=== PATIENT | female | born 1945 | race Caucasian/White ===

== ENCOUNTER 2018-04-21 10:44 | Day surgery (SDC) | payer MEDICARE ==
--- NOTE | 2018-04-21 10:32 | P.GSHP ---
History of Present Illness H&P Date: 04/21/18 CHIEF COMPLAINT: GERD HISTORY OF PRESENT ILLNESS: The patient is a 73-year-old female who presents reports gastroesophageal reflux disease. Upper endoscopy was offered for further evaluation and management. PAST MEDICAL HISTORY: Please see list. PAST SURGICAL HISTORY: Please see list. MEDICATIONS: Please see list. ALLERGIES: Please see list. SOCIAL HISTORY: No illicit drug use FAMILY HISTORY: No reports of Crohn disease or ulcerative colitis. REVIEW OF ORGAN SYSTEMS: CONSTITUTIONAL: No reports of fevers or chills. GI: Denies any blood in stools or constipation. PHYSICAL EXAM: VITAL SIGNS: Stable GENERAL: Well-developed and pleasant in no acute distress. HEENT: No scleral icterus. Extraocular movements grossly intact. Moist buccal mucosa. NECK: Supple without lymphadenopathy. CHEST: Unlabored respirations. Equal bilateral excursions. CARDIOVASCULAR: Regular rate and rhythm. Distal 2+ pulses. ABDOMEN: Soft, nondistended. MUSCULOSKELETAL: No clubbing, cyanosis, or edema. ASSESSMENT: 1. Gastroesophageal reflux disease PLAN: 1. Recommend proceeding with an upper endoscopy
[2018-04-21 11:58] VITALS: TEMP 98.5
[2018-04-21] MEDS ORDERED: LACTATED RINGERS 1,000 ML IV ONE (12:21)
[2018-04-21] MEDS ORDERED: LIDOCAINE 1% 20 ML VIAL (10MG/ML) FOR IV START INTRADERMA ONE (12:22)
[2018-04-21] MEDS ORDERED: LIDOCAINE 1% INJ 10MG/ML (20 ML MDV) ONE (12:30)
[2018-04-21] MEDS ORDERED: PROPOFOL 10 MG/ML 20 ML VIAL IV ONE (12:30)
--- NOTE | 2018-04-21 12:49 | P.PCN ---
Date of Procedure: 04/21/18 Description of Procedure: PREOPERATIVE DIAGNOSIS: Gastroesophageal reflux disease. Morbid obesity. History of vertical banding gastroplasty POSTOPERATIVE DIAGNOSIS: Gastroesophageal reflux disease. Morbid obesity. History of vertical banding gastroplasty Diaphragmatic hiatal hernia Severe erosive esophagitis Gastric gastric fistula Esophageal ulcers Foreign body OPERATION: Esophagogastroduodenoscopy with biopsies along antrum. SURGEON: Nury Zavala MD ANESTHESIA: MAC. INDICATIONS: The patient is a 73-year-old female who presents with a history of reflux disease. Benefits and risks of the procedure were described. Informed consent was obtained. DESCRIPTION: The patient was brought into the endoscopy suite and laid in the left lateral decubitus position. An Olympus gastroscope was passed along the posterior oropharynx down to the distal esophagus where the squamocolumnar junction was encountered at 36 cm from the incisors. The stomach was entered and no bile reflux was found. Gastric gastric fistula was identified from her vertical banded gastroplasty. Silastic band was found along the gastric cardia consistent with foreign body. Additional findings are listed below. Biopsies with cold forceps were obtained of the antrum. The first through third portion of the duodenum was examined and unremarkable. Retroflexion of the scope confirmed Hill grade 4 lower esophageal valve. The squamocolumnar junction demonstrated LA grade C erosive esophagitis. The stomach was desufflated. The patient tolerated the procedure well. FINDINGS: Squamocolumnar junction 36 cm from the incisors. Diaphragmatic hiatus at 40 cm. Hiatal hernia, 4 cm Hill grade 4 lower esophageal valve. LA grade C erosive esophagitis with esophageal ulcer No active duodenitis. Foreign body from silastic band and gastric fistula Chronic gastritis RECOMMENDATIONS: Upper endoscopy as needed. Plan - Discharge Summary New Discharge Prescriptions: No Action Simvastatin [Zocor] 20 mg PO QAM Ranitidine HCl [Zantac] 150 mg PO BID Mirabegron [Myrbetriq] 50 mg PO DAILY Allopurinol [Zyloprim] 100 mg PO DAILY Lisinopril [Zestril] 10 mg PO DAILY Discharge Medication List Allopurinol [Zyloprim] 100 mg PO DAILY 04/21/18 [History] Lisinopril [Zestril] 10 mg PO DAILY 04/21/18 [History] Mirabegron [Myrbetriq] 50 mg PO DAILY 04/21/18 [History] Ranitidine HCl [Zantac] 150 mg PO BID 04/21/18 [History] Simvastatin [Zocor] 20 mg PO QAM 04/21/18 [History]
[2018-04-21 13:10] VITALS: RESP 18
[2018-04-21 13:40] VITALS: BP 106/66; PULSE 72
[2018-04-21 15:53] LABS: HCT 44.2 % (34.0-46.0); HGB 13.9 gm/dL (11.4-16.0); MCH 30.6 pg (25.0-35.0); MCHC 31.5 g/dL (31.0-37.0); MCV 97.2 fL (80.0-100.0); Mean Platelet Volume 7.9; Platelet Count 201 k/uL (150-450); RBC 4.55 m/uL (3.80-5.40); RDW 13.4 % (11.5-15.5); WBC 5.9 k/uL (3.8-10.6)
[2018-04-21 16:06] LABS: Partial Thromboplastin Time 23.7 sec (22.0-30.0); Prothrombin Time 9.9 sec (9.0-12.0)
[2018-04-21 16:49] LABS: Albumin 3.9 g/dL (3.5-5.0); Calcium 9.9 mg/dL (8.4-10.2); Phosphorus 3.6 mg/dL (2.5-4.5); Potassium 4.4 mmol/L (3.5-5.1); Total Bilirubin 0.7 mg/dL (0.2-1.3); Total Protein 6.8 g/dL (6.3-8.2)
[2018-04-22 03:34] LABS: Iron Saturation 29.53 (12.00-45.00)
[2018-04-22 03:42] LABS: Vitamin D 25 Hydroxy 33.8 ng/mL (30.0-100.0)
[2018-04-22 03:56] LABS: Folate, Serum 15.3 ng/mL
[2018-04-22 04:03] LABS: Parathyroid Hormone Intact 53.8 pg/mL (14.0-72.0)
[2018-04-22 05:29] LABS: Hemoglobin A1C 5.4 % (4.0-6.0)
[2018-04-22 14:54] LABS: Zinc, Serum 48 ug/dL (60-130)
[2018-04-23 07:33] LABS: Vitamin B1 76 ug/L (38-122)
[2018-04-23 07:52] LABS: Vitamin A 74 ug/dL (38-106)
[2018-04-23 19:04] LABS: Selenium 187 mcg/L (63-160)
== END 2018-04-21 13:41 | disposition home or self-care (01) ==
LOC: ORWHC2ENDO 10:44
PROVIDERS: ATTEND Surgery Plastic and Reconstructive Surgery
DX: K29.50 Unspecified chronic gastritis without bleeding (principal); K22.10 Ulcer of esophagus without bleeding; K31.6 Fistula of stomach and duodenum; K21.9 Gastro-esophageal reflux disease without esophagitis; E66.01 Morbid (severe) obesity due to excess calories; I10 Essential (primary) hypertension; K44.9 Diaphragmatic hernia without obstruction or gangrene; Z88.8 Allergy status to other drugs, medicaments and biological substances; Z79.899 Other long term (current) drug therapy; Z68.33 Body mass index [BMI] 33.0-33.9, adult
CPT/HCPCS: 84255; 84134; 88305; 84425; 80061; 80053; 82607; 82728; 82525; 82746; 83540; 83550; 83735; 84100; 84443; 84590; 84630; 85027; 85610; 85730; 82306; 83970; 83036; 36415; 43239; J2001; J2704

== ENCOUNTER → 2018-05-17 | Outpatient (CLI) | payer MEDICARE ==
[~2018-05-17] MED LIST: IOPAMIDOL-300 CONTRAST 30 ML VIAL (ORAL USE) PO PRN
--- NOTE | 2018-05-17 08:05 | P.PN ---
Progress Note - Text Progress Note Date: 05/17/18 Radiology called with creatinine over 1.3. CT without IV contrast agreed.
--- NOTE | 2018-05-17 09:20 | CT ---
EXAMINATION TYPE: CT abdomen pelvis wo con DATE OF EXAM: 05/17/2018 COMPARISON: None HISTORY: Gastric fistula CT DLP: 971 mGycm Automated exposure control for dose reduction was used. TECHNIQUE: Helical acquisition of images was performed from the lung bases through the pelvis. FINDINGS: LUNG BASES: No significant abnormality is appreciated. LIVER/GB: Hypodensities within the liver are indeterminate by noncontrast technique. Likely related t o simple cysts. PANCREAS: No significant abnormality is seen. SPLEEN: No significant abnormality is seen. ADRENALS: Nonspecific thickening of the left adrenal gland most likely in the basis of hyperplasia.. KIDNEYS: No significant abnormality is seen. ADENOPATHY: None visualized. OSSEOUS STRUCTURES: Scoliotic curvature with multilevel degenerative disc disease noted. Arthropathy of the hips. BOWEL: There is to be a hiatal hernia with contrast seen in the esophagus and stomach. No extravasat ion of contrast. Changes of diverticulosis noted. No evidence of bowel obstruction. Correlate for previous surgery at the level the GE junction.. OTHER: Visualized aorta of normal caliber with atherosclerotic disease. No free fluid or free air. Ut erus atrophic. IMPRESSION: 1. There appears to be a hiatal hernia with suggestion of possible previous surgery at the level the GE junction. There is no evidence of contrast extravasation. Wall thickening at the level the GE junc tion may be postsurgical correlate clinically to exclude esophagitis or mucosal lesion. No diagnostic evidence of bowel obstruction. 2. Suspected simple hepatic cysts
--- NOTE | 2018-05-17 10:45 | FL ---
EXAMINATION TYPE: FL barium swallow DATE OF EXAM: 05/17/2018 CLINICAL HISTORY: History of previous gastric banding and reflux TECHNIQUE: A double contrast esophagram is performed utilizing air and barium. A total of 73 second s of fluoroscopic time was utilized during procedure. 13 images submitted COMPARISON: None FINDINGS: The esophagus shows tertiary contractions and dysmotility and there is prominence distal es ophagus above the level the GE junction. Suggestion of a hiatal hernia with somewhat of a area of dev iation of the distal esophagus which may be related to previous surgery or possibly related to a hiat al hernia. Recommend direct visualization to assess the mucosa. No gastroesophageal reflux. Assessmen t stomach is nondiagnostic for esophagram. IMPRESSION: 1. There is a hiatal hernia is somewhat of a deviated distal esophagus which could be related the pat ient's history of previous surgery. There is slight distortion at this level with mucosal [with] irre gularity also noted which could be on the basis of previous surgery or esophagitis. Mucosal lesion no t excluded. Correlate clinically and with direct visualization as clinically warranted.
== END | disposition home or self-care (01) ==
LOC: RADCTMAIN 06:26
PROVIDERS: ATTEND Surgery Plastic and Reconstructive Surgery
DX: K44.9 Diaphragmatic hernia without obstruction or gangrene (principal); K22.8 Other specified diseases of esophagus; K31.6 Fistula of stomach and duodenum
CPT/HCPCS: 36415; 74176; 74220; 82565; 84520

== ENCOUNTER → 2018-06-24 | Outpatient (CLI) | payer MEDICARE ==
--- NOTE | 2018-06-24 11:07 | P.HPBAR ---
Bariatric H&P - History & Physicial H&P Date: 06/24/18 History & Physicial: Visit/CC: Patient initial contact: Initial weight: Initial weight in pounds: Height: Initial BMI: Last weight: Current weight: Current weight in pounds: Current BMI: [place] body weight (based on NIH guidelines): Excess body weight loss: The patient is a 73 year-old F who presents for Bariatric Assessment. DATE OF SERVICE: 06/24/2018 REASON FOR CONSULTATION: Initial bariatric evaluation. HISTORY OF PRESENT ILLNESS: Stefanie Mejias is a 73-year-old female who comes in with complication of vertical banded gastroplasty including erosion over 25+ years ago. She presents with severe gastroesophageal reflux disease and epigastric pain. She completed multiple diagnostic studies showing complications of her bariatric procedure. At height of 5 feet 5 inches, her ideal body weight is 149 pounds. She comes in 221 pounds. Her body mass index is 36.8. She is 72 pounds overweight. PAST MEDICAL HISTORY: 1. Morbid obesity due to excess calories 2. Gastroesophageal reflux disease 3. Hyperlipidemia 4. Hypertensive heart disease 5. Gout PAST SURGICAL HISTORY: 1. Vertical banded gastroplasty 2. EGD HOME MEDICATIONS: ALLERGIES: Home Medications Medication Instructions Recorded Confirmed Type Allopurinol [Zyloprim] 100 mg PO DAILY 04/21/18 06/28/18 History Lisinopril [Zestril] 10 mg PO DAILY 04/21/18 06/28/18 History Mirabegron [Myrbetriq] 50 mg PO DAILY 04/21/18 06/28/18 History Pantoprazole Sodium [Protonix] 40 mg PO DAILY #30 tablet. 04/21/18 06/28/18 Rx Ranitidine HCl [Zantac] 150 mg PO BID 04/21/18 06/28/18 History Simvastatin [Zocor] 20 mg PO QAM 04/21/18 06/28/18 History Zinc Gluconate [Zinc] 50 mg PO DAILY 06/28/18 06/28/18 History Allergies Allergy/AdvReac Type Severity Reaction Status Date / Time STEROIDS AdvReac Hallucinati Uncoded 06/28/18 17:39 ons SOCIAL HISTORY: No active tobacco use. FAMILY HISTORY: No family history of ulcerative colitis disease or Crohn's disease. Family history of morbid obesity. No lupus in the family. No reports of stomach or esophageal cancer. REVIEW OF ORGAN SYSTEMS: CONSTITUTIONAL: At height of 5 feet 5 inches, her ideal body weight is 149 pounds. She comes in 221 pounds. Her body mass index is 36.8. She is 72 pounds overweight. HEENT: Denies any active troubles with vision or hearing. Has troubles with swallowing. ENDOCRINE: No diabetes. No hypothyroidism. CARDIOVASCULAR: No reports of palpitations or heart attacks or chest pain. RESPIRATORY: No daytime somnolence. No asthma. GI: Denies any bright red blood per rectum. No diarrhea. Has gastroesophageal reflux disease MUSCULOSKELETAL: Has lower back pain and joint pain. Has osteoarthritis of the knees. Has gout. NEURO: No headaches. No seizure disorders. PSYCH: No depression. No suicidal ideation. RHEUMATOLOGIC: No lupus. No rheumatoid arthritis. HEMATOLOGIC: Denies any abnormal bleeding or bruising. No personal history of DVTs. SKIN: No rash. No skin cancer. PHYSICAL EXAM: VITAL SIGNS: Height 5 foot 5 inches, weight 221 pounds. BMI 36.8 Vital Signs Temp 97.9 F 06/24/18 10:00 Pulse 75 06/24/18 10:00 Resp BP 163/81 06/24/18 10:00 Pulse Ox GENERAL: Well-developed in no acute distress. HEENT: No scleral icterus. Extraocular movements grossly intact. Hears conversational speech. No nasal drainage. NECK: Supple without lymphadenopathy. CHEST: Nonlabored respirations with equal bilateral excursions. CARDIOVASCULAR: Regular rate and regular rhythm. Distal 2+ pulses. ABDOMEN: Obese, soft, nontender, nondistended. MUSCULOSKELETAL: No clubbing, cyanosis. Gross strength 5/5 distal lower extremities. NEURO: No focal or lateralizing signs. Cranial nerves 2 through 12 grossly within normal limits. PSYCH: Appropriate affect. Alert and oriented to person, place and time. SKIN: Good skin turgor. Well perfused. LABS: Reviewed with creatinine elevated. Zinc is low. STUDIES: CT of the abdomen and pelvis reviewed shows anomaly of the stomach. Large hiatal hernia reviewed. Esophragram reviewed. EGD FINDINGS: Squamocolumnar junction 36 cm from the incisors. Diaphragmatic hiatus at 40 cm. Hiatal hernia, 4 cm Hill grade 4 lower esophageal valve. LA grade C erosive esophagitis with esophageal ulcer No active duodenitis. Foreign body from silastic band and gastric fistula Chronic gastritis Final Pathologic Diagnosis GASTRIC ANTRUM, BIOPSY: Chronic gastritis. Helicobacter pylori organisms are not identified on routine H+E sections. ASSESSMENT: 1. Morbid obesity due to excess calories, BMI 36.8 2. Gastroesophageal reflux disease 3. Hyperlipidemia 4. Hypertensive heart disease 5. Gout 6. Complications of bariatric procedure PLAN: 1. Surgical correction of vertical banded gastroplasty to gastric bypass was described. She is very high risk. 2. The [place] bariatric surgical collaborative data and outcomes calculator were described with surgical options. 3. Dietary surveillance and counseling was reviewed, I have asked increased protein intake to at least 65 grams daily. 4. Will need cardiac risk assessment. 5. Recommend medical risk assessment. 6. Psych assessment per insurance guidelines. 7. Recommend 12-lead EKG. 8. Will need nephrology evalution for stage 3 kidney disease due to hypertension 9. Surgery anticipated for 6+ hrs, potentially in stages reviewed 10. Patient wants discussion with her son who is a nurse 11. Will need correction of Zinc deficiency prior to surgery 12. Continue with Omeprazole in the interim 13. We went over CT scan, esophogram, and upper scope for repair in stages of her VBG conversion to bypass with hiatal hernia repair and scar tissue removal. 14. Labs reviewed with moderate zinc deficency. Thank you for this consultation. Bariatric Checklist Checklist: Plan: Checklist: EGD: 1. Hiatal hernia: 2. H. Pylori: HgbA1c: Vitamin D: Smoking: Primary care physician referral: Psychiatry clearance: Cardiology clearance: Sleep study: Diet journal: VTE risk score: VTE risk level: Rehab needs at discharge:
[2018-06-28 17:39] VITALS: BP 163/81; PULSE 75; TEMP 97.9; BMI 36.8
== END | disposition home or self-care (01) ==
LOC: BARWHC3 09:49
PROVIDERS: ATTEND Surgery Plastic and Reconstructive Surgery
DX: K95.09 Other complications of gastric band procedure (principal); E66.01 Morbid (severe) obesity due to excess calories; K21.9 Gastro-esophageal reflux disease without esophagitis; E78.5 Hyperlipidemia, unspecified; I11.9 Hypertensive heart disease without heart failure; M10.9 Gout, unspecified; Z68.36 Body mass index [BMI] 36.0-36.9, adult; Z79.899 Other long term (current) drug therapy; Z88.8 Allergy status to other drugs, medicaments and biological substances
CPT/HCPCS: 99211

== ENCOUNTER → 2018-10-13 | Outpatient (CLI) | payer MEDICARE ==
--- NOTE | 2018-10-13 16:50 | P.HPBAR ---
Bariatric H&P - History & Physicial H&P Date: 10/13/18 History & Physicial: Visit/CC: pre-surg Patient initial contact: Initial weight: 100.289 kg Initial weight in pounds: 221.10 Height: 5 ft 5 in Initial BMI: 36.8 Last weight: Current weight: 105.687 kg Current weight in pounds: 233.00 Current BMI: 38.7 [place] body weight (based on NIH guidelines): 56.699 kg Excess body weight loss: The patient is a 73 year-old F who presents for Bariatric Assessment. HPI: She comes in with history of complications of vertical banded gastroplasty. ASSESSMENT: 1. Complications from VBG PLAN: 1. Will need revision to gastric bypass 2. All clearances obtaine. 3. Diet classes. 4. Set aside for 6 hr. Past Medical History History of Any Multi-Drug Resistant Organisms: None Reported Smoking Status: Never smoker Surgical - Exam Vital Signs Temp Pulse Resp BP 98.1 F 86 16 119/75 10/13/18 15:12 10/13/18 15:12 10/13/18 15:12 10/13/18 15:12 Bariatric Checklist Checklist: Plan: Checklist: EGD: 1. Hiatal hernia: 2. H. Pylori: HgbA1c: Vitamin D: Smoking: Never smoker Primary care physician referral: monique palacios Psychiatry clearance: Cardiology clearance: Sleep study: Diet journal: VTE risk score: VTE risk level: Rehab needs at discharge:
[2018-10-13 17:17] VITALS: BP 119/75; PULSE 86; RESP 16; TEMP 98.1; BMI 38.7
== END ==
LOC: BARWHC3 14:13
PROVIDERS: ATTEND Surgery Plastic and Reconstructive Surgery
DX: K95.89 Other complications of other bariatric procedure (principal)
CPT/HCPCS: 99211

== ENCOUNTER → 2018-10-25 | Outpatient (CLI) | payer MEDICARE ==
[2018-10-25 14:01] VITALS: BMI 38.8
== END | disposition home or self-care (01) ==
LOC: BARWHC3 08:51
PROVIDERS: ATTEND Surgery Plastic and Reconstructive Surgery
DX: E66.01 Morbid (severe) obesity due to excess calories (principal); Z68.38 Body mass index [BMI] 38.0-38.9, adult
CPT/HCPCS: 97804

== ENCOUNTER → 2018-10-28 | Outpatient (CLI) | payer MEDICARE ==
--- NOTE | 2018-10-28 15:34 | US ---
EXAMINATION TYPE: US kidneys/renal and bladder DATE OF EXAM: 10/28/2018 COMPARISON: CT CLINICAL HISTORY: N18.3 chronic kidney diseae stage 3. Chronic kidney disease stage III. Hypertension . EXAM MEASUREMENTS: Right Kidney: 8.6 x 4.5 x 4.7 cm Left Kidney: 9.4 x 4.3 x 4.4 cm Post Void Residual Volume: Not performed Very limited exam due to body habitus and gas. Right Kidney: No hydronephrosis or masses seen Left Kidney: No hydronephrosis or masses seen Bladder: Limited by incomplete distention. Appears anechoic, not fully distended. Bilateral Jets seen: No IMPRESSION: No hydronephrosis or nephrolithiasis.
== END | disposition home or self-care (01) ==
LOC: RADUSWWP 14:54
PROVIDERS: ATTEND Internal Medicine
DX: N18.3 Chronic kidney disease, stage 3 (moderate) (principal)
CPT/HCPCS: 76770

== ENCOUNTER → 2018-12-29 | Outpatient (CLI) | payer MEDICARE ==
[2018-12-29 14:27] VITALS: BP 140/73; PULSE 81; RESP 16; TEMP 97.8; BMI 38.8
--- NOTE | 2018-12-29 15:10 | P.PN ---
Subjective Progress Note Date: 12/29/18 DATE OF SERVICE: 12/29/2018 CHIEF COMPLAINT: Complications from Vertical banded gastroplasty HISTORY OF PRESENT ILLNESS: Stefanie Mejias is a 73-year-old female who comes in with complication of vertical banded gastroplasty including erosion over 25+ years ago. She comes in with her son. She is wants to be converted from a vertical banded gastroplasty variation to gastric bypass. No reports of abdominal pain. No blood in stools. She is tolerating Omeprazole that is treating her gastroesophageal reflux disease. No reports of nausea or vomiting. At height of 5 feet 5 inches, her ideal body weight is 149 pounds. She comes in 233 pounds from 232 pounds, 2 months ago. She has gained 1 pound in 2 months. Her body mass index is 38.8. She is 84 pounds overweight. PAST MEDICAL HISTORY: 1. Morbid obesity due to excess calories, BMI 38.8 2. Gastroesophageal reflux disease 3. Hyperlipidemia 4. Hypertensive heart disease 5. Gout PAST SURGICAL HISTORY: 1. Vertical banded gastroplasty 2. EGD HOME MEDICATIONS: ALLERGIES: Home Medications Medication Instructions Recorded Confirmed Allopurinol [Zyloprim] 100 mg PO DAILY 04/21/18 10/25/18 Lisinopril [Zestril] 10 mg PO DAILY 04/21/18 10/25/18 Mirabegron [Myrbetriq] 50 mg PO DAILY 04/21/18 10/25/18 Simvastatin [Zocor] 20 mg PO QAM 04/21/18 10/25/18 Zinc Gluconate [Zinc] 50 mg PO DAILY 06/28/18 10/25/18 Previous Rx's Medication Instructions Recorded Pantoprazole Sodium [Protonix] 40 mg PO DAILY #30 tablet. 04/21/18 Allergies Allergy/AdvReac Type Severity Reaction Status Date / Time STEROIDS AdvReac Hallucinati Uncoded 10/25/18 11:59 ons SOCIAL HISTORY: No active tobacco use. FAMILY HISTORY: No family history of ulcerative colitis disease or Crohn's disease. Family history of morbid obesity. No lupus in the family. No reports of stomach or esophageal cancer. REVIEW OF ORGAN SYSTEMS: CONSTITUTIONAL: At height of 5 feet 5 inches, her ideal body weight is 149 pounds. She comes in 232 pounds. Her body mass index is 38.8. She is 84 pounds overweight. HEENT: Denies any active troubles with vision or hearing. Has troubles with swallowing. ENDOCRINE: No diabetes. No hypothyroidism. CARDIOVASCULAR: No reports of palpitations or heart attacks or chest pain. RESPIRATORY: No daytime somnolence. No asthma. GI: Denies any bright red blood per rectum. No diarrhea. Has gastroesophageal reflux disease MUSCULOSKELETAL: Has lower back pain and joint pain. Has osteoarthritis of the knees. Has gout. NEURO: No headaches. No seizure disorders. PSYCH: No depression. No suicidal ideation. RHEUMATOLOGIC: No lupus. No rheumatoid arthritis. HEMATOLOGIC: Denies any abnormal bleeding or bruising. No personal history of DVTs. SKIN: No rash. No skin cancer. PHYSICAL EXAM: VITAL SIGNS: Height 5 foot 5 inches, weight 233 pounds. BMI 38.8 Vital Signs Temp 97.8 F 12/29/18 14:22 Pulse 81 12/29/18 14:22 Resp 16 12/29/18 14:22 BP 140/73 12/29/18 14:22 Pulse Ox GENERAL: Well-developed in no acute distress. HEENT: No scleral icterus. Extraocular movements grossly intact. Hears conversational speech. No nasal drainage. NECK: Supple without lymphadenopathy. CHEST: Nonlabored respirations with equal bilateral excursions. CARDIOVASCULAR: Regular rate and regular rhythm. Distal 2+ pulses. ABDOMEN: Obese, soft, nontender, nondistended. MUSCULOSKELETAL: No clubbing, cyanosis. Gross strength 5/5 distal lower extremities. NEURO: No focal or lateralizing signs. Cranial nerves 2 through 12 grossly within normal limits. PSYCH: Appropriate affect. Alert and oriented to person, place and time. SKIN: Good skin turgor. Well perfused. ASSESSMENT: 1. Morbid obesity due to excess calories, BMI 38.8 2. Gastroesophageal reflux disease 3. Hyperlipidemia 4. Hypertensive heart disease 5. Gout 6. Complications of bariatric procedure 7. Zinc deficiency 8. Stage III renal disease secondary to hypertension PLAN: 1. She is looking for vertical banded gastroplasty to gastric bypass. She is high risk for leaks and strictures described. 2. For her renal disease, recommend decrease protein source to minimize renal impairment. 3. Will need inpatient hospitalization overnight. 4. Will need pre-op labs. 5. DVT prophylaxis 6. Antibiotic prophylaxis. Objective - Vital Signs Vital signs: Vital Signs Temp 97.8 F 12/29/18 14:22 Pulse 81 12/29/18 14:22 Resp 16 12/29/18 14:22 BP 140/73 12/29/18 14:22 Pulse Ox Intake & Output 12/28/18 12/29/18 12/29/18 18:59 06:59 18:59 Weight 105.857 kg
== END | disposition home or self-care (01) ==
LOC: BARWHC3 13:54
PROVIDERS: ATTEND Surgery Plastic and Reconstructive Surgery
DX: K95.89 Other complications of other bariatric procedure (principal); E66.01 Morbid (severe) obesity due to excess calories; K21.9 Gastro-esophageal reflux disease without esophagitis; E78.5 Hyperlipidemia, unspecified; M10.9 Gout, unspecified; E60 Dietary zinc deficiency; I13.10 Hypertensive heart and chronic kidney disease without heart failure, with stage 1 through stage 4 chronic kidney disease, or unspecified chronic kidney disease; N18.3 Chronic kidney disease, stage 3 (moderate); Z68.38 Body mass index [BMI] 38.0-38.9, adult; Z98.84 Bariatric surgery status; Z79.899 Other long term (current) drug therapy; Z88.8 Allergy status to other drugs, medicaments and biological substances
CPT/HCPCS: 99211

== ENCOUNTER → 2019-01-19 | Outpatient (CLI) | payer MEDICARE ==
[2019-01-19 14:08] LABS: Basophils # (A) 0.1 k/uL (0-0.2); Basophils % (A) 1 %; Eosinophils # (A) 0.2 k/uL (0-0.7); Eosinophils % (A) 2 %; HCT 43.9 % (34.0-46.0); HGB 14.2 gm/dL (11.4-16.0); Lymphocytes # (A) 2.1 k/uL (1.0-4.8); Lymphocytes % (A) 23 %; MCH 30.5 pg (25.0-35.0); MCHC 32.4 g/dL (31.0-37.0); MCV 94.2 fL (80.0-100.0); Mean Platelet Volume 7.7; Monocytes # (A) 0.4 k/uL (0-1.0); Monocytes % (A) 4 %; Neutrophils # (A) 5.9 k/uL (1.3-7.7); Neutrophils % (A) 67 %; Platelet Count 258 k/uL (150-450); RBC 4.66 m/uL (3.80-5.40); RDW 14.5 % (11.5-15.5); WBC 8.9 k/uL (3.8-10.6)
[2019-01-19 14:19] LABS: Albumin 4.4 g/dL (3.5-5.0); Calcium 10.3 mg/dL (8.4-10.2); Potassium 5.5 mmol/L (3.5-5.1); Total Bilirubin 0.8 mg/dL (0.2-1.3); Total Protein 7.3 g/dL (6.3-8.2)
== END | disposition home or self-care (01) ==
LOC: LABPAT 13:11
PROVIDERS: ATTEND Surgery Plastic and Reconstructive Surgery
DX: Z01.812 Encounter for preprocedural laboratory examination (principal)
CPT/HCPCS: 36415; 80053; 85025

== ENCOUNTER → 2019-01-26 | Outpatient (CLI) | payer MEDICARE ==
--- NOTE | 2019-01-26 16:44 | P.PN ---
Subjective Progress Note Date: 01/26/19 DATE OF SERVICE: 01/26/2019 CHIEF COMPLAINT: Complications from Vertical banded gastroplasty HISTORY OF PRESENT ILLNESS: Stefanie Mejias is a 73-year-old female who comes in with complications from vertical banded gastroplasty including erosion over 25+ years ago. She is feeling better. She has lost 10 pounds in over 6 months. No reports of reflux. No reports of abdominal pain. No report of chest pain. At height of 5 feet 5 inches, her ideal body weight is 149 pounds. She comes in 234 pounds from 233 pounds, 1 month ago. She has gained 1 pound in 1 month. Her body mass index is 39.0. She is 85 pounds overweight. PHYSICAL EXAM: VITAL SIGNS: Height 5 foot 5 inches, weight 234 pounds. BMI 39.0 Vital Signs Temp 98.2 F 01/26/19 16:40 Pulse 88 01/26/19 16:40 Resp BP 110/79 01/26/19 16:40 Pulse Ox GENERAL: Well-developed in no acute distress. HEENT: No scleral icterus. Extraocular movements grossly intact. Hears conversational speech. No nasal drainage. NECK: Supple without lymphadenopathy. CHEST: Nonlabored respirations with equal bilateral excursions. CARDIOVASCULAR: Regular rate and regular rhythm. Distal 2+ pulses. ABDOMEN: Obese, soft, nontender, nondistended. MUSCULOSKELETAL: No clubbing, cyanosis. NEURO: No focal or lateralizing signs. Cranial nerves 2 through 12 grossly within normal limits. PSYCH: Appropriate affect. Alert and oriented to person, place and time. SKIN: Good skin turgor. Well perfused. LABS: Creatinine is elevated. Calcium is elevated. ASSESSMENT: 1. Morbid obesity due to excess calories, BMI 39.0 2. Gastroesophageal reflux disease 3. Hyperlipidemia 4. Hypertensive heart disease 5. Gout 6. Complications of bariatric procedure 7. Zinc deficiency 8. Stage III renal disease secondary to hypertension 9. Elevated calcium PLAN: 1. In review of her labs, she has moderate elevated of her potassium, creatinine, and calcium level. Surgery held. 2. Her symptoms are well controlled with Omeprazole therefore, no surgical intervention. 3. Will repeat her labs after fluid hydration.
[2019-01-26 17:05] VITALS: BP 110/79; PULSE 88; TEMP 98.2; BMI 39.0
== END | disposition home or self-care (01) ==
LOC: BARWHC3 15:35
PROVIDERS: ATTEND Surgery Plastic and Reconstructive Surgery
DX: K95.89 Other complications of other bariatric procedure (principal); E66.01 Morbid (severe) obesity due to excess calories; K21.9 Gastro-esophageal reflux disease without esophagitis; E78.5 Hyperlipidemia, unspecified; M10.9 Gout, unspecified; E60 Dietary zinc deficiency; I13.10 Hypertensive heart and chronic kidney disease without heart failure, with stage 1 through stage 4 chronic kidney disease, or unspecified chronic kidney disease; N18.3 Chronic kidney disease, stage 3 (moderate); Z68.39 Body mass index [BMI] 39.0-39.9, adult
CPT/HCPCS: 99211

== ENCOUNTER → 2019-02-28 | Outpatient (CLI) | payer MEDICARE ==
[2019-02-28 14:21] LABS: HCT 38.3 % (34.0-46.0); HGB 12.8 gm/dL (11.4-16.0); MCH 30.8 pg (25.0-35.0); MCHC 33.5 g/dL (31.0-37.0); MCV 91.9 fL (80.0-100.0); Mean Platelet Volume 7.2; Platelet Count 213 k/uL (150-450); RBC 4.16 m/uL (3.80-5.40); RDW 13.2 % (11.5-15.5); WBC 5.9 k/uL (3.8-10.6)
[2019-02-28 19:22] LABS: African American GFR (CKD) 42.5 (60.0-200.0); Albumin/Globulin Ratio 2.11 (1.60-3.17); Anion Gap 6.9 mmol/L (4.00-12.00); BUN/Creat Ratio 18.57 Ratio (12.00-20.00); Calcium 9.3 mg/dL (8.7-10.3); Carbon Dioxide 24.1 mmol/L (21.6-31.8); Globulin 1.9 g/dL (1.6-3.3); Potassium 4.9 mmol/L (3.5-5.5); Total Bilirubin 0.5 mg/dL (0.3-1.2); Total Protein 5.9 g/dL (6.2-8.2)
== END | disposition home or self-care (01) ==
LOC: LABWHC1 13:29
PROVIDERS: ATTEND Surgery Plastic and Reconstructive Surgery
DX: E66.01 Morbid (severe) obesity due to excess calories (principal)
CPT/HCPCS: 36415; 80053; 85027

== ENCOUNTER → 2019-03-02 | Outpatient (CLI) | payer MEDICARE ==
[2019-03-02 17:05] VITALS: BP 140/81; PULSE 74; TEMP 98.1; BMI 39.4
--- NOTE | 2019-03-07 00:28 | P.PN ---
Subjective Progress Note Date: 03/02/19 DATE OF SERVICE: 03/02/2019 CHIEF COMPLAINT: Complications from Vertical banded gastroplasty HISTORY OF PRESENT ILLNESS: Stefanie Mejias is a 73-year-old female who comes in with complications from vertical banded gastroplasty including erosion over 25+ years ago. She is feeling better. Her kidneys have been poor. Calcium is now normal. She denies any more acid reflux. She has kidney problems. At height of 5 feet 5 inches, her ideal body weight is 149 pounds. She comes in 237 pounds from 234 pounds, 1 month ago. She has gained 2 pounds in 1 month. Her body mass index is 39.4. She is 88 pounds overweight. PHYSICAL EXAM: VITAL SIGNS: Height 5 foot 5 inches, weight 237 pounds. BMI 39.4 Vital Signs Temp 98.1 F 03/02/19 17:03 Pulse 74 03/02/19 17:03 Resp BP 140/81 03/02/19 17:03 Pulse Ox GENERAL: Well-developed in no acute distress. HEENT: No scleral icterus. Extraocular movements grossly intact. Hears conversational speech. No nasal drainage. NECK: Supple without lymphadenopathy. CHEST: Nonlabored respirations with equal bilateral excursions. CARDIOVASCULAR: Regular rate and regular rhythm. Distal 2+ pulses. ABDOMEN: Obese, soft, nontender, nondistended. MUSCULOSKELETAL: No clubbing, cyanosis. NEURO: No focal or lateralizing signs. Cranial nerves 2 through 12 grossly within normal limits. PSYCH: Appropriate affect. Alert and oriented to person, place and time. SKIN: Good skin turgor. Well perfused. ASSESSMENT: 1. Morbid obesity due to excess calories, BMI 39.4 2. Gastroesophageal reflux disease 3. Hyperlipidemia 4. Hypertensive heart disease 5. Gout 6. Complications of bariatric procedure 7. Zinc deficiency 8. Stage III renal disease secondary to hypertension 9. Elevated calcium PLAN: 1. Recommend that she sees seamer panty hose prior to any surgical intervention. 2. Will need label of protein source for medical supervised weight loss 3. She still wants to pursue surgery but on hold until medical precautions are met with protein diet and medications. 4. Follow up in 1 month following seamer panty hose follow-up ADDENDUM: Protein shake only has 15 g of protein per serving. Overall, dietary supplement very high risk for progressive renal disease and ollie-operative complications. Objective - Vital Signs Vital signs: Vital Signs Temp 98.1 F 03/02/19 17:03 Pulse 74 03/02/19 17:03 Resp BP 140/81 03/02/19 17:03 Pulse Ox
== END | disposition home or self-care (01) ==
LOC: BARWHC3 15:51
PROVIDERS: ATTEND Surgery Plastic and Reconstructive Surgery
DX: E66.01 Morbid (severe) obesity due to excess calories (principal); Z68.39 Body mass index [BMI] 39.0-39.9, adult; K21.9 Gastro-esophageal reflux disease without esophagitis; E78.5 Hyperlipidemia, unspecified; I11.9 Hypertensive heart disease without heart failure; M10.9 Gout, unspecified; N18.3 Chronic kidney disease, stage 3 (moderate); N28.9 Disorder of kidney and ureter, unspecified; E60 Dietary zinc deficiency; E83.52 Hypercalcemia; K95.89 Other complications of other bariatric procedure
CPT/HCPCS: 99211

== ENCOUNTER → 2019-03-30 | Outpatient (CLI) | payer MEDICARE ==
[2019-03-30 16:05] VITALS: BP 139/67; PULSE 86; TEMP 98.2; BMI 39.6
--- NOTE | 2019-03-30 16:20 | P.PN ---
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 She has seen her tax services professional regarding her worsening kidney function. She is tolerating diet. She denies any dysphagia. She denies any gastroesophageal reflux disease. She presents for evaluation of weight loss surgery and revision. At height of 5 feet 5 inches, her ideal body weight is 149 pounds. She comes in 238 pounds from 237 pounds, 1 month ago. She has gained 1 pounds in 1 month. Her body mass index is 39.6. She is 89 pounds overweight. PHYSICAL EXAM: VITAL SIGNS: Height 5 foot 5 inches, weight 238 pounds. BMI 39.6 Vital Signs Temp 98.2 F 03/30/19 16:03 Pulse 86 03/30/19 16:03 Resp BP 139/67 03/30/19 16:03 Pulse Ox GENERAL: Well-developed in no acute distress. HEENT: No scleral icterus. Extraocular movements grossly intact. Hears conversational speech. No nasal drainage. NECK: Supple without lymphadenopathy. CHEST: Nonlabored respirations with equal bilateral excursions. CARDIOVASCULAR: Regular rate and regular rhythm. Distal 2+ pulses. ABDOMEN: Obese, soft, nontender, nondistended. MUSCULOSKELETAL: No clubbing, cyanosis. NEURO: No focal or lateralizing signs. Cranial nerves 2 through 12 grossly within normal limits. PSYCH: Appropriate affect. Alert and oriented to person, place and time. SKIN: Good skin turgor. Well perfused. ASSESSMENT: 1. Morbid obesity due to excess calories, BMI 39.6 2. Gastroesophageal reflux disease 3. Hyperlipidemia 4. Hypertensive heart disease 5. Gout 6. Complications of bariatric procedure 7. Zinc deficiency 8. Stage III renal disease secondary to hypertension 9. Elevated calcium 10. Medical supervised weight loss. PLAN: 1. Her labs and findings were reviewed. 2. She is very high risk for surgical complications. 3. Options of [employer] diet plan reviewed with close follow up Objective - Vital Signs Vital signs: Vital Signs Temp 98.2 F 03/30/19 16:03 Pulse 86 03/30/19 16:03 Resp BP 139/67 03/30/19 16:03 Pulse Ox Intake & Output 03/29/19 03/30/19 03/30/19 18:59 06:59 18:59 Weight 107.955 kg
== END | disposition home or self-care (01) ==
LOC: BARWHC3 14:46
PROVIDERS: ATTEND Surgery Plastic and Reconstructive Surgery
DX: E66.01 Morbid (severe) obesity due to excess calories (principal); K21.9 Gastro-esophageal reflux disease without esophagitis; E78.5 Hyperlipidemia, unspecified; M10.9 Gout, unspecified; I11.9 Hypertensive heart disease without heart failure; I12.9 Hypertensive chronic kidney disease with stage 1 through stage 4 chronic kidney disease, or unspecified chronic kidney disease; N18.3 Chronic kidney disease, stage 3 (moderate); Z68.39 Body mass index [BMI] 39.0-39.9, adult; E83.52 Hypercalcemia; R63.4 Abnormal weight loss; K95.89 Other complications of other bariatric procedure
CPT/HCPCS: 99211

== ENCOUNTER → 2021-03-14 | Outpatient (CLI) | payer MEDICARE ==
--- NOTE | 2021-03-18 10:49 | MM ---
Reason for exam: screening (asymptomatic). Last mammogram was performed 6 years and 8 months ago. History: Patient is postmenopausal. Breast lifts of both breasts, 1995. Physical Findings: A clinical breast exam by your physician is recommended on an annual basis and results should be correlated with mammographic findings. MG 3D Screening Mammo W/Cad Bilateral CC and MLO view(s) were taken. Prior study comparison: July 07, 2017, mammogram, performed at [facility]. Asymmetries bilaterally, stable. No significant changes when compared with prior studies. ASSESSMENT: Benign, BI-RAD 2 RECOMMENDATION: Routine screening mammogram of both breasts in 1 year.
== END | disposition home or self-care (01) ==
LOC: RADMAMWWP 13:41
PROVIDERS: ATTEND Family Medicine
DX: Z12.31 Encounter for screening mammogram for malignant neoplasm of breast (principal); Z78.0 Asymptomatic menopausal state
CPT/HCPCS: 77063; 77067

== ENCOUNTER → 2022-09-19 | Outpatient (CLI) | payer MEDICARE ==
--- NOTE | 2022-09-22 15:35 | MM ---
Reason for Exam: Screening (asymptomatic). Last mammogram was performed 1 year(s) and 7 month(s) ago. Patient History: Menarche at age 11. First Full-Term at age 19. Postmenopausal. Risk Values: Xena 5 year model risk: 1.5%. NCI Lifetime model risk: 2.5%. Prior Study Comparison: 07/07/2017 Screening Mammogram, [facility]. 03/14/2021 Bilateral Screening Mammogram, [facility]. Tissue Density: The breast tissue is heterogeneously dense. This may lower the sensitivity of mammography. Findings: Analyzed By CAD. There is no suspicious group of microcalcifications or new suspicious mass in either breast. Overall Assessment: Benign, BI-RAD 2 Management: Screening Mammogram of both breasts in 1 year. A clinical breast exam by your physician is recommended on an annual basis and results should be correlated with mammographic findings. Electronically signed and approved by: Jasvir Moses M.D. Radiologis
== END | disposition home or self-care (01) ==
LOC: RADMAMWWP 11:40
PROVIDERS: ATTEND Family Medicine
DX: Z12.31 Encounter for screening mammogram for malignant neoplasm of breast (principal); Z78.0 Asymptomatic menopausal state
CPT/HCPCS: 77063; 77067

== ENCOUNTER 2023-03-24 14:17 | Emergency (ER) | payer MEDICARE ==
[2023-03-24 14:34] VITALS: BP 123/78; PULSE 75; RESP 18; TEMP 97
[2023-03-24] MEDS ORDERED: LIDOCAINE/EPINEPHR/TETRACAINE 5 ML BOTTLE TOPICAL ONE (14:45)
--- NOTE | 2023-03-24 15:41 | CT ---
EXAMINATION TYPE: CT brain cspine wo con CT DLP: 1453.3 mGycm, Automated exposure control for dose reduction was used. DATE OF EXAM: 03/24/2023 3:21 PM COMPARISON: None. CLINICAL INDICATION:Female, 78 years old with history of pain; fall TECHNIQUE: Brain: Multiple axial CT images of the brain were obtained without IV contrast. Cspine: Axial CT images from the skull base to the inferior aspect of T2 we obtained without intraven ous contrast. Coronal and sagittal reformatted images were also reviewed. FINDINGS: Brain: Extra-axial spaces: No abnormal extra-axial fluid collections. Ventricular system: Dilatation in proportion to cerebral atrophy. Cerebral parenchyma: Remote injuries to the bilateral basal ganglia suggested. No acute intraparenchy mal hemorrhage or mass effect. The campos-white junction is well differentiated. Scattered hypoattenua ting areas are seen within the white matter. Cerebellum: Unremarkable. Mass effect: No evidence of midline shift. Intracranial vasculature: Atherosclerotic calcifications of the intracranial vessels. Soft tissues: Normal. Calvarium/osseous structures: No depressed skull fracture. Paranasal sinuses and mastoid air cells: Clear. Visualized orbits: Orbital contents are intact. Cervical spine: Fracture: None. Osseous structures: Multilevel degenerative disc disease changes with endplate spurring and disc oste ophyte complex's. Vertebral alignment: Within normal limits. Spinal canal/Neural Foramina: Disc osteophyte complexes at C5-C7 with at least mild spinal canal sten osis. No evidence for significant neural foraminal stenosis. Neck soft tissues: Prevertebral soft tissues are within normal limits. Other: The airway is patent. The lung apices are clear. IMPRESSION: 1. No acute intracranial process. 2. Nonspecific white matter changes causing suspected remote injuries to the bilateral anterior limb s of the internal capsule/caudate nuclei. 3. No evidence of cervical spine fracture. 4. Mild multilevel degenerative disc disease.
[2023-03-24] MEDS ORDERED: DIPH,PERTUS(ACELL)TETVAC-LF 0.5 ML VIAL IM ONE (16:53)
[2023-03-24] MEDS ORDERED: ACETAMINOPHEN TAB 500 MG TAB PO STA (16:53)
[2023-03-24] MEDS ORDERED: LIDOCAINE 1% INJ 10MG/ML (20 ML MDV) SQ ONE (16:53)
--- NOTE | 2023-03-24 17:02 | ED ---
General Adult HPI - General Chief complaint: Head Injury Stated complaint: Head injury Time Seen by Provider: 03/24/23 16:14 Source: patient, RN notes reviewed Mode of arrival: ambulatory Limitations: no limitations - History of Present Illness Initial comments: 78-year-old female presents to the emergency department with chief complaint of head injury. She states that this morning she was sleeping and rolled out of bed. She states that she hit her head on the bedside table causing her to wake up from her sleep. She states that she did not lose consciousness. She denies any blood thinners. Denies any significant headache or vomiting at this time. She is not up to date on her tetanus vaccination. She was sent in by urgent care. Denies any other injuries. - Related Data Home Medications Medication Instructions Recorded Confirmed Mirabegron [Myrbetriq] 50 mg PO QAM 04/21/18 03/30/19 Simvastatin [Zocor] 20 mg PO QAM 04/21/18 03/30/19 lisinopriL [Zestril] 5 mg PO QAM 04/21/18 03/30/19 Citalopram Hydrobromide [CeleXA] 10 mg PO HS 12/29/18 03/30/19 Pantoprazole Sodium [Protonix] 40 mg PO QAM 01/18/19 03/30/19 Cyanocobalamin (Vitamin B-12) 1,000 mg PO DAILY 03/30/19 03/30/19 [Vitamin B-12] Multivitamins, Thera [Multivitamin 1 tab PO DAILY 03/30/19 03/30/19 (formulary)] Allergies Allergy/AdvReac Type Severity Reaction Status Date / Time Penicillins Allergy Rash/Hives Verified 03/24/23 14:28 STEROIDS AdvReac Hallucinati Uncoded 03/24/23 14:28 ons Review of Systems ROS Statement: Those systems with pertinent positive or pertinent negative responses have been documented in the HPI. ROS Other: All systems not noted in ROS Statement are negative. Past Medical History Past Medical History: GERD/Reflux, Hyperlipidemia, Hypertension, Renal Disease Additional Past Medical History / Comment(s): urinary incontinence, stage 3 renal failure, History of Any Multi-Drug Resistant Organisms: None Reported Past Surgical History: Bariatric Surgery Additional Past Surgical History / Comment(s): Oral surgery/lower left tooth pulled on 12/29/18 to prep for implant., "variation of a vertical sleeve gastrectomy" per Dr. Nury Zavala, bilateral breast reduction/panniculectomy (plastic surgery after losing weight), Left leg veins stripped Past Psychological History: Depression Smoking Status: Former smoker Past Alcohol Use History: None Reported Past Drug Use History: None Reported General Exam Limitations: no limitations General appearance: alert, in no apparent distress Head exam: Present: other (laceration to right sided forehead) Eye exam: Present: normal appearance, PERRL, EOMI. Absent: scleral icterus, conjunctival injection, periorbital swelling ENT exam: Present: normal exam, mucous membranes moist Neck exam: Present: normal inspection, full ROM. Absent: tenderness, meningismus, lymphadenopathy Respiratory exam: Present: normal lung sounds bilaterally. Absent: respiratory distress, wheezes, rales, rhonchi, stridor Cardiovascular Exam: Present: regular rate, normal rhythm, normal heart sounds. Absent: systolic murmur, diastolic murmur, rubs, gallop, clicks Extremities exam: Present: normal inspection, full ROM, normal capillary refill. Absent: tenderness, pedal edema, joint swelling, calf tenderness Back exam: Present: normal inspection Neurological exam: Present: alert, oriented X3, CN II-XII intact Skin exam: Present: warm, dry, normal color, other (laceration to right sided forehead). Absent: rash Course Vital Signs 03/24/23 14:28 Temperature 97 F L Pulse Rate 75 Respiratory 18 Rate Blood Pressure 123/78 O2 Sat by Pulse 98 Oximetry Procedures - Laceration Laceration #1 Consent Obtained: verbal consent Indication: laceration Site: face Size (cm): 1 Description: linear Depth: simple, single layer Anesthetic Used: lidocaine 1% Anesthesia Technique: local infiltration Pre-repair: wound explored, irrigated extensively Type of Sutures: other Size of Sutures: 6-0 Number of Sutures: 3 Technique: simple, interrupted Patient Tolerated Procedure: well, no complications Medical Decision Making - Medical Decision Making Was pt. sent in by a medical professional or institution (, PA, PHOTOENGRAVING HELPER, urgent care, hospital, or [facility]...) When possible be specific @ -No Did you speak to anyone other than the patient for history (EMS, parent, family, police, friend...)? What history was obtained from this source @ -No Did you review nursing and triage notes (agree or disagree)? Why? @ -I reviewed and agree with nursing and triage notes Were old charts reviewed (outside hosp., previous admission, EMS record, old E KG, old radiological studies, urgent care reports/EKG's, [facility] records)? Report findings @ -No old charts were reviewed Differential Diagnosis (chest pain, altered mental status, abdominal pain women, abdominal pain men, vaginal bleeding, weakness, fever, dyspnea, syncope, headache, dizziness, GI bleed, back pain, seizure, CVA, palpatations, mental hea lth, musculoskeletal)? @ -laceration, closed head injury, intracranial hemorrhage EKG interpreted by me (3pts min.). @ -none X-rays interpreted by me (1pt min.). @ -None done CT interpreted by me (1pt min.). @ -CT brain and C spine shows no acute cranial process, no evidence of cervical spine fracture, mild DDD U/S interpreted by me (1pt. min.). @ -None done What testing was considered but not performed or refused? (CT, X-rays, U/S, labs)? Why? @ -None What meds were considered but not given or refused? Why? @ -None Did you discuss the management of the patient with other professionals (professionals i.e. , PA, PHOTOENGRAVING HELPER, lab, RT, psych nurse, public health social worker, musculoskeletal physiotherapist, teacher, human resource officer, insurance case manager)? Give summary @ -No Was smoking cessation discussed for >3mins.? @ -No Was critical care preformed (if so, how long)? @ -No Were there social determinants of health that impacted care today? How? (Homelessness, low income, unemployed, alcoholism, drug addiction, transportation, low edu. Level, literacy, decrease access to med. care, assisted, rehab)? @ -No Was there de-escalation of care discussed even if they declined (Discuss DNR or withdrawal of care, Hospice)? DNR status @ -No What co-morbidities impacted this encounter? (DM, HTN, Smoking, COPD, CAD, Cancer, CVA, ARF, Chemo, Hep., AIDS, mental health diagnosis, sleep apnea, morbid obesity)? @ -None Was patient admitted / discharged? Hospital course, mention meds given and route, prescriptions, significant lab abnormalities, going to OR and other pertinent info. @ -Discharged. Patient presents to the emergency department for chief complaint of head injury. Patient states that she fell out of bed today and hit her forehead on the nightstand. She has a laceration to her right-sided forehead about 0.5 cm no active bleeding at this time. Denies loss consciousness, blood thinners. CT brain and C spine shows no acute cranial process, nonspecific white matter changes causing suspected internal injuries to bilateral anterior limbs of internal capsule/caudate nuclei, no evidence of cervical spine fracture, mild DDD. Laceration irrigated and repaired with sutures. Suture care discussed with patient. Advised to have sutures removed in 5 days. Patient understanding and agreeable with plan. Strict return precautions discussed. Case discussed with Dr. Szymanski. Patient stable at time of discharge Undiagnosed new problem with uncertain prognosis? @ -No Drug Therapy requiring intensive monitoring for toxicity (Heparin, Nitro, Insulin, Cardizem)? @ -No Were any procedures done? @ -laceration repair Diagnosis/symptom? @ -head injury, laceration Acute, or Chronic, or Acute on Chronic? @ -acute Uncomplicated (without systemic symptoms) or Complicated (systemic symptoms)? @ -uncomplicated Side effects of treatment? @ -No Exacerbation, Progression, or Severe Exacerbation? @ -No Poses a threat to life or bodily function? How? (Chest pain, [place], AR, pneumonia, PE, COPD, DKA, ARF, appy, cholecystitis, CVA, Diverticulitis, Homicidal, Suicidal, threat to staff... and all critical care pts) @ -No Disposition Clinical Impression: Laceration, Head injury Disposition: HOME SELF-CARE Condition: Stable Additional Instructions: Have sutures removed in 3-5 days. Please follow up with your primary care provider. Return to the emergency department for worsening symptoms. Is patient prescribed a controlled substance at d/c from ED?: No Referrals: Patrick Carpenter DO [Primary Care Provider] - 1-2 days Time of Disposition: 17:44
== END 2023-03-24 18:28 | disposition home or self-care (01) ==
LOC: EC 14:17
DX: S01.81XA Laceration without foreign body of other part of head, initial encounter (principal); I12.9 Hypertensive chronic kidney disease with stage 1 through stage 4 chronic kidney disease, or unspecified chronic kidney disease; N18.30 Chronic kidney disease, stage 3 unspecified; K21.9 Gastro-esophageal reflux disease without esophagitis; E78.5 Hyperlipidemia, unspecified; F32.A Depression, unspecified; Z23 Encounter for immunization; Z88.0 Allergy status to penicillin; Z88.8 Allergy status to other drugs, medicaments and biological substances; Z87.891 Personal history of nicotine dependence; W06.XXXA Fall from bed, initial encounter
CPT/HCPCS: 72125; 70450; 90715; 99284; 90471; 12011; J2001